=== PATIENT | female | born 1965 | race Caucasian/White ===

== ENCOUNTER 2017-01-20 14:25 | Inpatient (IN) | payer OTHER ==
[~2017-01-20] VITALS: Ht 167.6 cm; Wt 91.2 kg
[2017-01-20] MEDS ORDERED: CITALOPRAM HBR40 MG PO (14:59)
[2017-01-20] MEDS ORDERED: TRAZODONE HCL150 MG PO (15:00)
[2017-01-20] MEDS ORDERED: ALPRAZOLAM0.5 MG PO (15:00)
[2017-01-20] MEDS ORDERED: NORCO 10-325 T1 EACH PO (16:11)
--- NOTE | 2017-01-20 17:30 | NUR ---
PT TO ROOM 114 FROM E.D., PT ALERT AND ORIENTED. ON TO BEDSIDE COMMODE VOIDED.
--- NOTE | 2017-01-20 20:18 | NUR ---
PT ALERT AND ORIENTED X4, PLEASENT DEMEANOR, COOPERATIVE, USING CALL LIGHT APPROPRIATLY. LEFT LEG ELEVATED ON PILLOWS, ICE ON TOP OF DRESSING, DRESSING CLEAN DRY AND INTACT. PT RATES PAIN AT 5/10, GAVE DILAUDID IV FOR PAIN. IV INFUSING WNL. PT HAS NO FURTHER NEEDS AT THIS TIME. CALL LIGHT IN REACH.
--- NOTE | 2017-01-20 22:21 | NUR ---
pt appears to be sleeping. rr wnl. lights and tv off in room.
--- NOTE | 2017-01-21 00:50 | NUR ---
PT UP TO BSC WITH 1 PERSON ASSIST TO VOID. COMPLAINS OF 5-6/10 PAIN. GAVE DILAUDID IV FOR PAIN. PT BACK IN BED. NO FURTHER NEEDS. EDUCATED ON NPO STATUS, PT VERBALIZED UNDERSTANDING. FRESH ICE PACKS TO LEFT LEG. CALL LIGHT IN REACH. NO FURTHER NEEDS.
--- NOTE | 2017-01-21 03:42 | NUR ---
PT RESTING QUIETLY. LIGHTS AND TV OFF IN ROOM.
--- NOTE | 2017-01-21 05:30 | NUR ---
ASSISTED PATIENT TO THE BATHROOM AND BACK TO BED WITH WALKER. CALL LIGHT WITHIN REACH. PRE OP WIPES DONE.
--- NOTE | 2017-01-21 06:26 | NUR ---
PT HAD UNEVENTFUL NIGHT, SLEPT MAJORITY OF SHIFT. DRESSING CLEAN DRY AND INTACT. ALL DR DILLARD ORDERS IN PLACE. PAIN WELL CONTROLLED WITH SCHEDULED AND PRN PAIN MEDICATIONS. BENEDRYL GIVEN X3 FOR PRURITIS, PT STATES "ITS BETTER," THIS MORNING. ALERT AND ORIENTED X4, COOPERATIVE, PLEASENT DEMEANOR. TACHO DC'D THIS AM. SBP RAN IN THE UPPER 90'S OVERNIGHT, DR DILLARD NOTIFIED, OKAY TO LEAVE FLUIDS RUNNING.
--- NOTE | 2017-01-21 06:39 | NUR ---
PT LEFT FLOOR WITH LANDON FEED RESEARCH AIDE. PT TOOK HER PHONE WITH HER, LEFT VIA STRETCHER BED.
--- NOTE | 2017-01-21 09:35 | NUR ---
PT BACK TO ROOM 114 AT THIS TIME, REPORTS PAIN 0/10, REPORTS TINGLING, SCD ON RIGHT LEG, LEFT LEG ELEVATED WITH ICE. NO NAUSEA. SCARLET AT BEDSIDE.
--- NOTE | 2017-01-21 09:45 | NUR ---
PATIENT IN BED. RN IN ROOM ASSESING. FRESH ICE WATER GIVEN. IN ROOM WITH PATIENT. WASH CLOTH GIVEN FOR HANDS AND FACE. CALL BUTTON IN REACH. NO OTHER NEEDS AT THIS TIME.
--- NOTE | 2017-01-21 11:36 | NUR ---
PATIENT RESTING IN BED. PASTER IS IN ROOM VISITING WITH PATIENT AND . NURSE HAS BEEN IN TO ASSIST TO BATHROOM WITH FWW.
--- NOTE | 2017-01-21 12:04 | NUR ---
PATIENT SITTING UP IN BED EATING LUNCH. RN ROOM. NO NEEDS AT THIS TIME.
--- NOTE | 2017-01-21 12:25 | NUR ---
PATIENT STILL WORKING ON HER LUNCH. DOING WELL OTHERWISE, DOES NOT NEED ANYTHING AT THIS TIME.
--- NOTE | 2017-01-21 13:13 | NUR ---
FAXED CHART NOTES TO [facility] FOR PT RX FOR CRUTCHES AND FOR RENTAL OF A KNEE SCOOTER PER REQUEST OF THE PT. PT STATES SHE WOULD LIKE TO RUN THEM THRU THE INSURANCE BUT WOULD PAY FOR THEM IF NECESSARY. CHART NOTES INCLUDED FACESHEET, ORDER, ER NOTES, H AND P, OP NOTE
--- NOTE | 2017-01-21 14:00 | NUR ---
PT UP WITH PHYSICAL THERAPY AT THIS TIME WITH CRUTCHES.
--- NOTE | 2017-01-21 14:13 | NUR ---
PT WAS LAYING IN BED, WATCHING TV. HER WAS BY HER SIDE. SHE WAS ALERT, ORIENTED AND FRIENDLY. SHE TOLD ME ABOUT THE OPERATION, AND HOW SHE SEEMS TO BE DEALING APPROPRIATELY WITH THIS UNTIMELY ACCIDENT. SHE BELIEVES SHE IS TO BE DC'D TODAY. EXTENDED A BLESSING, SHE THANKED ME
--- NOTE | 2017-01-21 15:08 | NUR ---
CALLED TO UPDATE HIM ON PT MEETING DISCHARGE PARAMETERS. ALSO THAT PT HR IS TACHYCARDIC 100-112 BPM. STATED OK TO DISCHARGE PER HIS ORDER
--- NOTE | 2017-01-21 15:27 | NUR ---
PATIENT IN BED WAITING FOR HER TO ARRIVE FOR DISCHARGE.
--- NOTE | 2017-01-21 15:30 | NUR ---
DISCHARGE PACKET AND EDUCATIONS GIVEN ON ACTIVITY RESTRICTIONS, NON-WEIGHT BEARING ON LEFT FOOT. CRUTCHES ORDERED AND READY TO BE PICKED UP. DISCUSSED WITH PT TO ELEVATE AND APPLY ICE TO LEFT FOOT WHEN AT REST. INSTRUCTED PT ON SAFE PAIN MEDICATION ADMINISTRATION, DISCUSSED MEDICATION ADMINISTRATION LAST DOSE NEXT DOSE. DRINK PLENTY OF WATER. PT INSTRUCTED NOT TO TAKE OFF THE BOOT OR DRESSING UNTIL FOLLOW UP APPOINTMENT IN TWO WEEKS ON . PT REPORTS THAT SHE FEEL PAIN IS WELL MANAGED AT THIS TIME. V.S STABLE, I.V. SITE REMOVED WNL, TIP INTACT
--- NOTE | 2017-01-23 07:17 | PREHP ---
[facility] [address] [place], [place] [address] Signed ADMISSION DATE: 01/20/2017 Ms. Matthews is a pleasant 52-year-old white female who is doing just fine until this weekend. [place] She apparently stepped somewhat awkwardly, heard something crack and something tear, and had some ongoing pain in her left ankle area. Despite bruising and deformity, she tried to reassure her she would be okay. Apparently, the next morning, the was quite concerned and they came home from [facility]. Apparently, it took quite a bit of convincing, but he finally got her to the emergency room yesterday in the late afternoon. Examination at that time revealed a fracture-dislocation (SER-IV/Davenport B fracture-dislocation at the left ankle. She underwent a provisional reduction by the ER staff, was splinted, and admitted to the Orthopedic Service. PAST MEDICAL HISTORY: Unremarkable. She says she is unaware of any chronic medical conditions. She is currently taking some pain medications for the ankle, but really denies any other issues or allergies. PHYSICAL EXAMINATION: She is a pleasant white female, who appears her stated age. Examination reveals she is alert, oriented, in no acute distress. Head, ears, eyes, nose, and throat are unremarkable. Her neck is supple. Her chest is clear. Cardiac exam reveals a regular rhythm. Her abdomen is benign. Left leg is in a well-moulded posterior splint. Her neurovascular exam is unremarkable. X-rays were ordered and reviewed and they show a SER-IV/Davenport B fracture pattern with lateral subluxation of the ankle. We have outlined all the treatment options along with our general recommendation for open reduction and internal fixation. We have outlined all the potential risks and complications and she seems comfortable with proceeding. Modesto Greene MD Electronically Signed By: MODESTO GREENE MD 01/23/17716 PATIENT NAME: CRISTINE MATTHEWS PREOPERATIVE H&P DATE OF : 67 PHYSICIAN: MODESTO GREENE MD REPORT #: [id number] REPORT IS CONFIDENTIAL AND NOT TO BE RELEASED WITHOUT AUTHORIZATION [address] [place] [address] Signed [facility]/SHERITA /[id number] Electronically Signed By: MODESTO GREENE MD 01/23/17716 PATIENT NAME: CRISTINE MATTHEWS PREOPERATIVE H&P DATE OF : 67 PHYSICIAN: MODESTO GREENE MD REPORT #: [id number] REPORT IS CONFIDENTIAL AND NOT TO BE RELEASED WITHOUT AUTHORIZATION
--- NOTE | 2017-01-23 07:17 | OR ---
[facility] [address] [facility] [place] [address] Signed DATE OF OPERATION: 01/21/2017 SURGEON: Modesto Valdovinos MD PREOPERATIVE DIAGNOSIS: Fractured dislocation, left ankle. POSTOPERATIVE DIAGNOSIS: Fractured dislocation, left ankle. PROCEDURE: Open reduction and internal fixation, left fibula. ANESTHESIA: General. SPECIMENS: There were no specimens. COMPLICATIONS: No complications. TOURNIQUET TIME: A little over half an hour. WHAT WAS DONE: The patient was taken to the operating room. After anesthesia was induced and the airway supported; left lower extremity was positioned, prepped and draped in a routine sterile fashion. The leg was exsanguinated with elevation. Pneumatic tourniquet was inflated to 300 mmHg pressure. A straight lateral approach was then made over the distal fibula at the length of an 8-hole one-third semitubular plate. The skin was divided sharply. Subcutaneous tissue was bluntly spread and really no additional dissection was required because of the soft tissue stripping that had occurred at the time of the dislocation of the ankle. The fracture site was gently irrigated. The primary fracture line was reduced and held with a single bone holding clamp. We then placed a single leg screw across the primary fracture line. An 8-hole one-third semitubular plate was then placed laterally and secured proximally and distally. At this point, we appeared to have a stable construct. Under fluoroscopic control, the cotton test was performed and there was no lateral Electronically Signed By: MODESTO VALDOVINOS MD 01/23/17 0717 PATIENT NAME: CRISTINE HARP OPERATIVE REPORT DATE OF : 67 PHYSICIAN: MODESTO VALDOVINOS MD REPORT #: [id number] REPORT IS CONFIDENTIAL AND NOT TO BE RELEASED WITHOUT AUTHORIZATION [address] [address] Signed luxation of the ankle. The wounds were gently irrigated, closed in a standard fashion. She was placed in a bulky dressing followed by a cam walker boot. She was awakened and taken to the recovery room where she arrived in stable condition. Counts were correct and antibiotic protocols were followed. MD ANNA Mendoza/SHERITAL /[id number] Electronically Signed By: MODESTO VALDOVINOS MD 01/23/17 0717 PATIENT NAME: CRISTINE HARP OPERATIVE REPORT DATE OF : 67 PHYSICIAN: MODESTO VALDOVINOS MD REPORT #: [id number] REPORT IS CONFIDENTIAL AND NOT TO BE RELEASED WITHOUT AUTHORIZATION
== END 2017-01-21 15:43 | disposition home or self-care (01) | DRG 494 ==
LOC: ED 14:25 → MS 17:15
PROVIDERS: ADMIT Orthopaedic Surgery
PROC: 3E0T3BZ Introduction of Anesthetic Agent into Peripheral Nerves and Plexi, Percutaneous Approach (ICD-10-PCS; 2017-01-21)
PROC: 0QSK04Z Reposition Left Fibula with Internal Fixation Device, Open Approach (ICD-10-PCS; principal; 2017-01-21 06:45)
DX: S82.62XA Displaced fracture of lateral malleolus of left fibula, initial encounter for closed fracture (principal); W01.0XXA Fall on same level from slipping, tripping and stumbling without subsequent striking against object, initial encounter; F41.9 Anxiety disorder, unspecified; F32.9 Major depressive disorder, single episode, unspecified
CPT/HCPCS: 01480; 27840; 36415; 64445; 73600; 73610; 76942; 80053; 85025; 97116; 99156; 99285; C1713; J0690; J1100; J1170; J1885; J2250; J2704; J2795; J3010; J7120; L4386

== ENCOUNTER 2018-12-15 12:00 | Day surgery (SDC) | payer OTHER ==
[~2018-12-15] VITALS: Ht 167.6 cm; Wt 88.9 kg
--- NOTE | ~2018-12-15 | OR ---
[facility] [address] [place], [place] [address] Draft DATE OF OPERATION: 12/15/2018 SURGEON: Marbella Spivey MD PREOPERATIVE DIAGNOSIS: Screening colonoscopy. POSTOPERATIVE DIAGNOSES: Scattered diverticula. No evidence of polyps. PROCEDURE PERFORMED: Total colonoscopy to cecum. ANESTHESIA: Intravenous sedation, fentanyl 200 mcg, and Versed 8 mg. INDICATIONS: This 53-year-old white woman is a patient of Dr. Garret Dominguez. She has no family history of colon cancer and no symptoms of bleeding, diarrhea, or constipation, but is referred for screening colonoscopy based on her age. She understands the risks of bleeding, infection, and perforation related to colonoscopy and wished to proceed. FINDINGS: The prep was adequate. Irrigation was used to more fully be certain of all areas of colon. There was no sign of polyps or colitis, though she did have scattered diverticula throughout the colon, not many, however. DESCRIPTION OF PROCEDURE: The patient was brought to the endoscopy suite and placed in lateral decubitus position given intravenous sedation. She appeared somewhat resistant to medications initially. She was comfortable throughout however. After satisfactory initial sedation, digital rectal examination was performed, which was normal. An Olympus video colonoscope was passed in the rectum and manipulated throughout the colon. Scattered diverticula were noted throughout. Irrigation was undertaken to more fully cleanse the colon. Ultimately, the cecum was obtained including the ileocecal valve and appendiceal orifice. Upon intubation of the cecum, scope was carefully withdrawn and examination throughout showed no sign of polyps or colitis, but did confirm scattered diverticula. Retroflexed view was normal. Scope was removed and the patient was taken to recovery room in good condition. PATIENT NAME: CRISTINE HARP OPERATIVE REPORT DATE OF : 67 REPORT #: [id number] PHYSICIAN: MARBELLA SPIVEY MD PCP: CARLOS DOMINGUEZ MD REPORT IS CONFIDENTIAL AND NOT TO BE RELEASED WITHOUT AUTHORIZATION [facility] [address] [facility] [place] [address] Draft CONCLUDING DIAGNOSIS: Minimal diverticular changes. PLAN: Recommend repeat colonoscopy in 10 years, sooner if clinically indicated. She will return to the ongoing care of Dr. Dominguez. MD FAIA Paulson/YOBANI /[id number] cc: MD Carlos Chang MD Copies: MARISA RITTER MD, JONATHAN MD ~ PATIENT NAME: CRISTINE HARP OPERATIVE REPORT DATE OF : 67 REPORT #: [id number] PHYSICIAN: MARBELLA SPIVEY MD PCP: CARLOS DOMINGUEZ MD REPORT IS CONFIDENTIAL AND NOT TO BE RELEASED WITHOUT AUTHORIZATION
[~2018-12-15 12:00] MED LIST: ALPRAZOLAM0.5 MG PO; CITALOPRAM HBR40 MG PO; MELOXICAM15 MG PO; NORCO 10-325 T1 EACH PO; TEMAZEPAM7.5 MG PO; TRAZODONE HCL150 MG PO; TRIAZOLAM0.25 MG PO
--- NOTE | 2018-12-15 14:22 | NUR ---
12/15/18 1421 Jayda Gonzalez 1416 PT ARRIVED TO PACU TALKING AND DENIES PAIN AND NAUSEA. 1415 O2 REMOVED. VSS. PLAN OF CARE DISCUSSED.
== END 2018-12-15 14:40 | disposition home or self-care (01) ==
LOC: OPS 12:00 → DS 13:00 → OPS 14:40
PROVIDERS: Surgery
PROC: 0DJD8ZZ Inspection of Lower Intestinal Tract, Via Natural or Artificial Opening Endoscopic (ICD-10-PCS; principal; 2018-12-15 13:00)
DX: Z12.11 Encounter for screening for malignant neoplasm of colon (principal); K57.30 Diverticulosis of large intestine without perforation or abscess without bleeding; Z86.59 Personal history of other mental and behavioral disorders
CPT/HCPCS: 99153; G0500; J2250; J3010

== ENCOUNTER 2022-03-13 06:00 | Day surgery (SDC) | payer OTHER ==
[~2022-03-13] VITALS: Ht 167.6 cm; Wt 81.8 kg
--- NOTE | ~2022-03-13 | OR ---
[facility] [address] [facility] [place] [address] Draft DATE OF OPERATION: 03/13/2022 SURGEON: Meli Simons MD PREOPERATIVE DIAGNOSIS: Postmenopausal bleeding and cervical polyp. 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 PROCEDURE: Removal of cervical polyp, hysteroscopy with resection of endometrial polyps. ANESTHESIA: MAC. ESTIMATED BLOOD LOSS: Minimal. DRAINS: None. INDICATIONS AND FINDINGS: The patient is a 57-year-old female who has been having some abnormal bleeding. At the time of her evaluation, she had a large cervical polyp, which appeared to be a nabothian cyst. Ultrasound did show a thickened endometrial lining. Because of this, it was felt that further evaluation was necessary. At the time of surgery, exam under anesthesia was normal other than the large nabothian cyst at the os. Uterus sounded to 9.5 cm. There were multiple polyps within the cavity. PROCEDURE IN DETAIL: The patient was prepped and draped in the dorsal lithotomy position. A weighted speculum was placed. The anterior lip of the cervix was visualized and grasped with a single-tooth tenaculum. The nabothian cyst was removed with biopsy forceps. It was filled with very thick mucus consistent with a nabothian cyst. The cavity was then sounded to 9.5 cm. The endocervical canal was then dilated to a #8 dilator. The MyoSure device was then placed and the cavity evaluated. Following this, the MyoSure Lite was introduced and the polyps were removed without any difficulty. Following this, the procedure was terminated. The MyoSure device was removed and the tenaculum removed from the cervix. PATIENT NAME: CRISTINE HARP OPERATIVE REPORT DATE OF : 67 REPORT #: [id number] PHYSICIAN: MELI SIMONS MD PCP: MERLE PAINTINGP-Osmani REPORT IS CONFIDENTIAL AND NOT TO BE RELEASED WITHOUT AUTHORIZATION [facility] [address] [place] [id number] Draft The cervix was visualized. There was no evidence of any ongoing bleeding and the patient was taken to the recovery room in good condition. All sponge counts were correct. Meli Simons MD PJW/MODL /[id number] Copies: ~ PATIENT NAME: CRISTINE HARP OPERATIVE REPORT DATE OF : 67 REPORT #: [id number] PHYSICIAN: MELI SIMONS MD PCP: MERLE PAINTINGP-Osmani REPORT IS CONFIDENTIAL AND NOT TO BE RELEASED WITHOUT AUTHORIZATION
[~2022-03-13 06:00] MED LIST changes: +CYMBALTA20 MG PO; +DICLOFENAC SODI50 MG PO
[2022-03-13] MEDS ORDERED: VITAMIN B122500 MCG PO (07:23)
[2022-03-13] MEDS ORDERED: VITAMIN D325 MC2 PO (07:23)
[2022-03-13] MEDS ORDERED: CALCIUM500 MG PO (07:23)
--- NOTE | 2022-03-13 09:38 | NUR ---
03/13/22 0938 Tamia Reyes 0995 PATIENT ARRIVES TO PACU, WITHDRAWLS TO PAIN, DOES NOT FOLLOW COMMANDS. AIRWAY OCCLUDES WHEN RN NOT HOLDING CHIN LIFT. RESP EVEN AND UNLABORED WITH INTERVENTION, MASK AT 6 LITERS.
--- NOTE | 2022-03-13 10:57 | NUR ---
[id number]: PT BACK TO DS RM 12 FROM PACU DROWSY. PT AROUSES TO VERBAL STIMULI, DENIES PAIN OR NAUSEA. PROVIDED ICE AND LEMON YUHAAVIATAM SODA PER REQUEST. CALL LIGHT WITHIN REACH, KLEBER MCKEON ON WARM. [id number]: PT USES CALL LIGHT TO ASK FOR WARM COMPRESS FOR LOWER ABD FOR CRAMPING, PROVIDED TWO FOLDED BLANKETS. PT STATES THAT HER FRIEND WILL BE TO HOSPITAL AROUND 1200 TO TAKE HER HOME AND STAY WITH HER UNTIL HER DAUGHTER IS AVAILABLE AT 3 SO THAT SHE IS NOT HOME ALONE. CALL LIGHT REMAINS IN PLACE, ENCOURAGED TO USE WITH ANY NEEDS.
--- NOTE | 2022-03-13 11:42 | NUR ---
1130: PT UP TO BATHROOM WITH RN ASSIST, ABLE TO VOID 300 MLS PINK URINE WITH ONE DARK COLORED CLOT PRESENT. PT BACK TO DS RM 12 AND DRESSES SELF. PT EDUCATED ABOUT CLOTS/BLEEDING AND WHEN TO CALL DR. RITTER. PT VERBALIZES AN UNDERSTANDING.
--- NOTE | 2022-03-13 13:20 | NUR ---
[id number]: DC INSTRUCTIONS PRESENTED VERBALLY AND WRITTEN TO PT. PT PROVIDED HARD SCRIPT TO TAKE TO PHARMACY TO HAVE FILLED. Charlotte DILLARD RN REMOVES IV AND PLACES COBAN PRESSURE DRESSING AND DC PT VIA WC TO FRIEND WAITING AT MAIN ENTRANCE TO HOSPITAL TO HOME.
--- NOTE | 2022-03-15 12:16 | PATH ---
[facility] [address] [place], [place] [address] Signed SPECIMEN(S): A CERVICAL BIOPSY SPECIMEN(S): B ENDOMETRIAL POLYP SPECIMEN SOURCE: A. CERVICAL BIOPSY B. ENDOMETRIAL POLYP CLINICAL HISTORY: Postmenopausal bleeding; cervical polyp. FINAL PATHOLOGIC DIAGNOSIS: A. 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 - Fragments of benign endocervical mucosa. - Fragments of benign lower uterine segment type mucosa. B. Endometrial polyp: - Proliferative endometrium with features consistent with endometrial polyp. - Negative for hyperplasia or atypia. - Benign myometrium. COMMENT: A recent cervical cytology is not available for review. JVR:maurice:C2NR MICROSCOPIC EXAMINATION: Histologic sections of all submitted blocks are examined by light microscopy. These findings, together with the gross examination, support the pathologic diagnosis. GROSS DESCRIPTION: A. The specimen, labeled and designated "Valentino Matthews, A," and designated on the requisition as "cervical biopsy, Nabothian cyst"," is received in formalin and consists of a Gabo pad containing multiple knight-brown, soft to rubbery tissue fragments from less than 0.1 up to 0.7 cm in greatest dimension. The specimen is inked with eosin and submitted in toto in 1 cassette (A1). B. The specimen, labeled and designated "Valentino Matthews B," and designated on the requisition as "endometrial polyp"," is received in formalin and consists of a suction bag containing multiple knight-white to brown, rubbery to soft tissue fragments, 2.9 x 2.7 x 0.3 cm in aggregate. The specimen is submitted in toto in 1 cassette (B1). PATIENT NAME: VALENTINO MATTHEWS PATHOLOGY DATE OF : 67 REPORT #: [id number] PHYSICIAN: KAYE FERGUSON PCP: MERLE PAINTING REPORT IS CONFIDENTIAL AND NOT TO BE RELEASED WITHOUT AUTHORIZATION [facility] [address] [facility] [place] [place] [address] Signed AI (under the direct supervision of a pathologist) The Gross Description was prepared using a voice recognition system. The report was reviewed for accuracy; however, sound-alike word errors, addition and/or deletions may occur. If there is any question about this report, please contact Client Services. PERFORMING LABORATORY: The technical component was performed by [facility], [address] [place] [address] (CLIA# [id number]). Professional interpretation was performed by [facility], [address] [place] [phone] (CLIA#: [id number]). Diagnostician: Garret Dupree MD Pathologist Electronically Signed 03/15/2022 Copies: ~ PATIENT NAME: VALENTINO MATTHEWS PATHOLOGY DATE OF : 67 REPORT #: [id number] PHYSICIAN: KAYE FERGUSON PCP: MERLE PAINTING REPORT IS CONFIDENTIAL AND NOT TO BE RELEASED WITHOUT AUTHORIZATION
== END 2022-03-13 12:00 | disposition home or self-care (01) ==
LOC: DS 06:00
PROVIDERS: ATTEND Obstetrics & Gynecology
PROC: 0UBC8ZZ Excision of Cervix, Via Natural or Artificial Opening Endoscopic (ICD-10-PCS; principal; 2022-03-13 09:15)
DX: N84.1 Polyp of cervix uteri (principal); N88.8 Other specified noninflammatory disorders of cervix uteri; N95.0 Postmenopausal bleeding
CPT/HCPCS: J0131; J1100; J1885; J2001; J2250; J2405; J2704; J2765; J7121